=== PATIENT | female | born 1965 | race Caucasian/White ===

== ENCOUNTER → 2020-10-24 10:09 | Outpatient (CLI) | payer BC, SELFPAY ==
--- NOTE | ~2020-10-24 | MM_ITS ---
EXAMINATION: MM screening [facility] BI w alec HISTORY: Screening mammogram TECHNIQUE: Craniocaudal and mediolateral oblique 3-D tomosynthesis images were obtained and synthetic 2-D images were generated. CAD analysis was submitted and interpreted. COMPARISON: 08/20/2019, 11/26/2018, 07/29/2018, 03/20/2017 BREAST PARENCHYMAL COMPOSITION: There are scattered areas of fibroglandular density. FINDINGS: There is no evidence of suspicious mass, calcification, or architectural distortion to sugg est malignancy in either breast. There has been no suspicious interval change. IMPRESSION: 1. No mammographic evidence of malignancy. 2. Recommend routine screening mammography in one year. BI-RADS Category 1: Negative Reviewed, dictated and finalized at location A. E CLEANER
== END ==
PROVIDERS: Visit Provider Obstetrics & Gynecology
DX: Z12.31 Encounter for screening mammogram for malignant neoplasm of breast (principal)
CPT/HCPCS: 77063; 77067

== ENCOUNTER → 2021-12-17 11:00 | Outpatient (CLI) | payer BC, SELFPAY ==
--- NOTE | ~2021-12-17 | XR_ITS ---
EXAMINATION: XR abdomen/kub 1V DATE: 12/17/2021 11:35 INDICATION: Low back pain, unspecified. Right flank pain. Hematuria. TECHNIQUE: A supine view of the abdomen was obtained. COMPARISON: None. FINDINGS: There are no dilated loops of bowel. There is a large volume of stool in the colon. There i s no visible urolithiasis. Surgical clips in the right upper quadrant are likely from cholecystectomy . IMPRESSION: 1. No visible urolithiasis. Reviewed, dictated and finalized at location A. E AND DESK FINISHER IMPRESSION: 1. No visible urolithiasis.
== END ==
PROVIDERS: PCP Family Medicine; Visit Provider Nurse Practitioner Family
DX: M54.50 Low back pain, unspecified (principal); R31.9 Hematuria, unspecified; R80.9 Proteinuria, unspecified
CPT/HCPCS: 74018

== ENCOUNTER → 2021-12-30 13:38 | Outpatient (CLI) | payer BC, SELFPAY ==
--- NOTE | ~2021-12-30 | CT_ITS ---
EXAMINATION: CT abdomen pelvis wo con EXAM DATE: 12/30/2021 14:08 INDICATION: R31.9 - Hematuria, unspecified. Right flank pain. TECHNIQUE: Spiral CT of the abdomen and pelvis was performed without contrast. Axial, coronal and sag ittal images were reviewed. The dose-length product (DLP) for this examination was 261.84 mGy-cm. T he exposure was tailored according to patient size (auto mA exposure control), and iterative reconstr uction (ASIR) was used as additional dose reduction technique. There is no prior study for compariso n. FINDINGS: There is no nephrolithiasis or hydronephrosis. The uterus is unremarkable. The bladder is unremarkable. The liver, spleen, adrenal glands and pancreas are unremarkable. There are cholecy stectomy clips. There is no retroperitoneal or pelvic lymphadenopathy. Small umbilical fat-contain ing hernia. There are no findings to suggest appendicitis. The stomach and small bowel are unremarkable. There is moderate amount of colonic stool. No free intraperitoneal gas. The heart is normal in size. T here are no pericardial or pleural effusions. Patchy peripheral bibasilar regions of subsolid airspa ce disease, appearance is suspicious for COVID pneumonia. There are no osteoblastic or osteolytic le sions identified. IMPRESSION: 1. Basilar airspace disease consistent with COVID pneumonia. 2. No nephrolithiasis, hydronephrosis or acute intra-abdominal findings. 3. Moderate colonic stool. I called pneumonia result to HELEN Urias Reviewed, dictated and finalized at location A. N UP PERSON
== END ==
PROVIDERS: PCP Family Medicine; Visit Provider Nurse Practitioner Family
DX: R31.9 Hematuria, unspecified (principal); R80.9 Proteinuria, unspecified; R91.8 Other nonspecific abnormal finding of lung field; K42.9 Umbilical hernia without obstruction or gangrene
CPT/HCPCS: 74176

== ENCOUNTER → 2022-01-24 08:31 | Outpatient (CLI) | payer BC, SELFPAY ==
--- NOTE | ~2022-01-24 | XR_ITS ---
EXAMINATION: XR chest 2V DATE: 01/24/2022 10:08 INDICATION: COVID 19 TECHNIQUE: frontal and lateral views of the chest were obtained. COMPARISON: None FINDINGS: The lungs are clear with no focal airspace opacities, pulmonary edema, pleural effusion or pneumothor ax. The cardiomediastinal silhouette is normal. Visualized bones and soft tissues are unremarkable. IMPRESSION: 1. No acute cardiopulmonary disease. Reviewed, dictated and finalized at location A.
== END ==
PROVIDERS: PCP Family Medicine; Visit Provider Nurse Practitioner Family
DX: U07.1 COVID-19 (principal)
CPT/HCPCS: 71046

== ENCOUNTER → 2022-10-20 15:07 | Outpatient (CLI) | payer BC, SELFPAY ==
--- NOTE | ~2022-10-20 | MM_ITS ---
EXAMINATION: MM screening [facility] BI w [facility]c HISTORY: Screening TECHNIQUE: Craniocaudal and mediolateral oblique 3-D tomosynthesis images were obtained and synthetic 2-D images were generated. CAD analysis was submitted and interpreted. COMPARISON: Comparison to multiple prior studies sequentially, with oldest reviewed study dated . BREAST PARENCHYMAL COMPOSITION: There are scattered areas of fibroglandular density. FINDINGS: There is no evidence of suspicious mass, calcification, or architectural distortion to sugg est malignancy in either breast. There has been no suspicious interval change. IMPRESSION: 1. No mammographic evidence of malignancy. 2. Recommend routine screening mammography in one year. BI-RADS Category 1: Negative Reviewed, dictated and finalized at location B. EL ENGINE PIPE FITTER
== END ==
PROVIDERS: PCP Obstetrics & Gynecology; Visit Provider Obstetrics & Gynecology
DX: Z12.31 Encounter for screening mammogram for malignant neoplasm of breast (principal)
CPT/HCPCS: 77063; 77067

== ENCOUNTER 2023-02-26 11:08 | Emergency (ER) | payer BC, SELFPAY ==
[2023-02-26] VITALS (7 sets, daily range): BP systolic 114–127; BP diastolic 62–75; PULSE 50–72; RESP 10–16; TEMP 36.2–36.4; O2SAT 99–100
--- NOTE | ~2023-02-26 | XR_ITS ---
Clinical Indication: Palpitation PA and lateral views of the chest: Comparison: 01/24/2022 Findings: The lungs are clear, without evidence of focal consolidation or pleural effusion. Cardiome diastinal silhouette is within normal limits. Bones and soft tissues are unremarkable. Impression: Normal chest. Reviewed, dictated and finalized at [facility]. Impression: Normal chest.
--- NOTE | 2023-02-26 11:26 | ECG_ITS ---
Measurements Intervals [place] Rate: 64 P: 74 ID: [id number] QRS: 70 QRSD: 84 T: 66 QT: 426 QTc: 441 Interpretive Statements SINUS RHYTHM NO PREVIOUS ECG AVAILABLE FOR COMPARISON Electronically Signed On 02-26-2023 18:32:00 CDT by Sachin Blackwell M.D.
[2023-02-26 11:46] LABS: Basophils Absolute Auto 0.1 K/mm3 (0.0-0.1); Basophils Percent Auto 0.8 % (0.2-1.2); Eosinophils Absolute Auto 0.1 K/mm3 (0-0.3); Eosinophils Percent Auto 1.4 % (0-4.4); Hematocrit 40.3 % (37.0-47.0); Hemoglobin 13.2 g/dL (12.0-15.0); Immature Granulocyte Absolute 0.01 K/mm3 (0.00-0.031); Immature Granulocyte Percent A 0.1 % (0-0.5); Lymphocytes Absolute Auto 3.25 K/mm3 (0.9-3.2); Lymphocytes Percent Auto 45.3 % (18.3-44.2); Mean Corpuscular HGB Conc 32.8 g/dl (32-36); Mean Corpuscular Hemoglobin 32.3 pg (26-34); Mean Corpuscular Volume 98.5 fl (80-100); Mean Platelet Volume 9.8 fl (7.4-10.4); Monocytes Absolute Auto 0.6 K/mm3 (0.1-0.6); Monocytes Percent Auto 8.8 % (2.6-8.5); Neutrophils Absolute Auto 3.1 K/mm3 (1.3-6.7); Neutrophils Percent Auto 43.6 % (45.5-73.1); Platelet Count Result 322 k/mm3 (150-375); Red Blood Count 4.09 M/mm3 (4.2-5.4); Red Cell Distribution Width 12.3 % (11.5-14.5); White Blood Count 7.2 K/mm3 (4.5-10.0)
[2023-02-26 11:55] LABS: Prothrombin Time 13.1 Seconds (11.1-14.7)
[2023-02-26 11:56] LABS: Partial Thromboplastin Time 29.1 SECONDS (22.3-36.8)
[2023-02-26 11:58] LABS: Alanine Aminotransferase 28 U/L (6-35); Albumin Level 4.3 g/dL (3.5-5.1); Alkaline Phosphatase 75 U/L (38-126); Anion Gap 3 mmol/L (8-16); Aspartate Amino Transferase 33 U/L (14-36); Bilirubin,Total 0.5 mg/dL (0.2-1.3); Blood Urea Nitrogen 11 mg/dL (7-17); Carbon Dioxide 31 mmol/L (22-30); Chloride 105 mmol/L (98-107); Estimated CRCL calculation 66 ml/min; Estimated Glomerular Filt Rate > 60; Glucose 76 mg/dL (65-110); Lipase 124 U/L (23-300); Potassium 3.8 mmol/L (3.4-5.0); Sodium 139 mmol/L (137-145)
[2023-02-26 12:10] LABS: Troponin I < 0.012 ng/mL (0.000-0.034)
[2023-02-26 14:04] LABS: Magnesium 2.2 mg/dL (1.6-2.3)
[2023-02-26 15:07] LABS: Troponin I < 0.012 ng/mL (0.000-0.034)
--- NOTE | 2023-02-26 15:52 | ED.ARRPALP ---
HPI - Arrhythmia/Palpitations General Chief Complaint: Arrhythmia/Palpitations Stated Complaint: palpitations Time Seen by Provider: 02/26/23 15:00 History of Present Illness HPI narrative: Patient is a 57-year-old female who presents ER with palpitations. Ongoing over the last couple months. Has not been seen by her PCP. Happens during the day when she is exerting herself. No lightheadedness or dizziness. No nausea or vomiting. Has occasional shortness of breath but is not fully associated with palpitations. She has not taken her pulse to see how fast her heart rate is going. She feels like it is just beating hard. No chest pain or chest pressure. No runny nose or sore throat or productive cough. No pain with deep breath. Patient reports intermittent heartburn over the last month as well but attributes it to a poor diet, symptoms are worse after eating, they are not associate with exertion. Related Data Allergies Allergy/AdvReac Type Severity Reaction Status Date / Time alprazolam [From Xanax] Allergy Intermediate Unknown Verified 02/26/23 14:53 Benzodiazepines Allergy Unknown Unknown Verified 02/26/23 14:53 Review of Systems Review of Systems: All systems reviewed & are unremarkable except as noted in HPI and below Constitutional: Constitutional: Denies chills, Denies fatigue and Denies fever(s) ENT: Denies nasal congestion and Denies sore throat Cardiovascular: Cardiovascular: Denies chest pain and Denies radiating jaw, neck or arm pain Respiratory: Respiratory: Denies cough and Reports dyspnea (Intermittent) Gastrointestinal: Gastrointestinal: Denies abdominal pain, Reports heartburn, Denies nausea and Denies vomiting Genitourinary: Genitourinary: Denies nocturia and Denies dysuria [facility] Past Medical History Medical History Abrasion of knee Anxiety Constipation Forearm abrasion Restless leg syndrome Screening, lipid Surgical History Surgical History History of x3 History of cholecystectomy History of colonoscopy with polypectomy History of exploratory laparotomy (10/12/03) exploratory lap/RSO/scar revision/adhesiolysis History of laparoscopy (~2001) History of right salpingo-oophorectomy (10/12/03) History of tubal ligation Family History Family History Father Hypertension Grandparent Carcinoma of colon Cerebrovascular accident Family history of cardiovascular disease Other Diabetes mellitus Social History Social History Smoking status: Never smoker Alcohol intake: never Substance use: never Substance use type: does not use Living arrangements: with family Occupation/Education: occupation Gender identity (if verbalized by the patient): Female Exam Narrative: GENERAL: Well-appearing, well-nourished, and in no acute distress. HEAD: Normocephalic, atraumatic. EYES: PERRL and EOMI. ENT: Mucous membranes moist. CHEST: Clear to auscultation. No respiratory distress. HEART: Regular rate and rhythm. Normal peripheral pulses. EXTREMITIES: Normal range of motion. No edema. SKIN: Warm, dry, no rash. NEURO: Alert and oriented x3. PSYCH: Anxious mood but normal thought process. Course Course Emergency Course: Patient resting comfortably. Educated on lab results. Troponin negative x2. No arrhythmia on monitor and EKG. Suspect component of anxiety but would recommend outpatient Holter monitor should symptoms persist. Patient verbalized understand this and is felt appropriate for discharge. Vital Signs Vital signs: Vital Signs Temperature 97.6 F 02/26/23 11:22 Pulse Rate 64 02/26/23 11:22 Respiratory Rate 16 02/26/23 11:22 Blood Pressure 126/73 02/26/23 11:22 Pulse Oximetry 99 02/26/23 11:22 Oxygen Delivery Room Air
== END 2023-02-26 16:18 | disposition home or self-care (01) ==
PROVIDERS: Physician Assistant; Emergency Provider Emergency Medicine; PCP Family Medicine
DX: R00.2 Palpitations (principal); F41.9 Anxiety disorder, unspecified; G25.81 Restless legs syndrome; Z90.721 Acquired absence of ovaries, unilateral; Z90.79 Acquired absence of other genital organ(s)
CPT/HCPCS: 36415; 71046; 80053; 83690; 83735; 84484; 85025; 85610; 85730; 93005; 99284

== ENCOUNTER → 2023-07-21 15:08 | Outpatient (CLI) | payer BC, SELFPAY ==
--- NOTE | ~2023-07-21 | XR_ITS ---
EXAM: XR lumbar spine 2-3V DATE: 07/21/2023 15:53 HISTORY: NECK PAIN, LOW BACK PAIN . COMPARISON: None available. FINDINGS: Cholecystectomy clips. Mild lumbar scoliosis. Decreased mineralization. 5 nonrib-bearing flex mbar-type vertebral bodies. Pedicles intact. Normal vertebral body alignment. Vertebral body heights preserved. Disc spaces maintained. Mild lower lumbar facet sclerosis and hypertrophy. No fracture or dislocation. IMPRESSION: Osteopenia. Mild lower lumbar facet arthropathy. Reviewed, dictated and finalized at location K.
--- NOTE | ~2023-07-21 | XR_ITS ---
Cervical Spine: AP, lateral, open-mouth views Clinical History: Pain Findings: There is mild reversal normal cervical lordosis. The vertebral bodies and posterior elemen ts appear intact. There is mild degenerative disc narrowing at C5-C6. Pre-vertebral soft tissues are unremarkable. Impression: Mild reversal of the normal cervical lordosis, with mild degenerative disc narrowing at C5-C6. Reviewed, dictated and finalized at [facility]. Impression: Mild reversal of the normal cervical lordosis, with mild degenerative disc narr owing at C5-C6.
== END ==
DX: M53.0 Cervicocranial syndrome (principal); M50.322 Other cervical disc degeneration at C5-C6 level; M47.896 Other spondylosis, lumbar region; M85.80 Other specified disorders of bone density and structure, unspecified site
CPT/HCPCS: 72050; 72100

== ENCOUNTER 2023-10-21 00:26 | Day surgery (SDC) | payer BC, SELFPAY ==
[2023-10-06 14:47] VITALS: BMI 21.9
--- NOTE | 2023-10-19 11:21 | SUR.PREOP ---
Patient called regarding upcoming procedure. Reviewed preop instructions, appointment times, and procedure prep.
[2023-10-21 06:45] VITALS: BP 105/68; PULSE 65; RESP 18; TEMP 36.4; O2SAT 100; BMI 20.2
[2023-10-21] MEDS: LACTATED RINGERS 1,000 ML 150 ML IV CONT (07:06)
--- NOTE | 2023-10-21 07:51 | PM.HPGS ---
History of Present Illness History of Present Illness Consent: Risks, benefits, and alternatives have been discussed and questions answered. Patient agrees to proceed with procedure. Chief complaint: hx of colonic polyps Narrative: Dee Jorge is a 57 year old female with colon polyps in 2019 Review of Systems Constitutional: Constitutional: Denies headache(s) and Denies weakness Eyes: Eyes: Denies blurry vision ENT: Reports Normal hearing present, Denies headache(s) and Denies neck pain Cardiovascular: Cardiovascular: Denies chest pain and Denies dyspnea Respiratory: Respiratory: Denies dyspnea Gastrointestinal: Gastrointestinal: Reports no additional gastrointestinal complaints Genitourinary: Genitourinary: Denies dysuria Musculoskeletal: Musculoskeletal: Denies neck pain Integumentary/Breasts: Skin/Breast: Denies dry skin Neurologic: Reports Normal hearing present, Denies headache(s) and Denies weakness Psychiatric: Psychiatric: Denies anxiety Endocrine: Endocrine: Denies change in body appearance Hematologic/Lymphatic: Hematologic/Lymphatic: Denies easy bleeding Allergic/Immunologic: Allergic/Immunologic: Denies urticaria PMFSH Past Medical History Medical History (Updated 09/29/23 @ 09:17 by HELEN Urias) Abrasion of knee Anxiety Body mass index (BMI) less than 20 Constipation Encounter for gynecological examination Forearm abrasion Personal history of colonic polyps Restless leg syndrome Screening, lipid Surgical History Surgical History History of x3 History of cholecystectomy History of colonoscopy with polypectomy History of exploratory laparotomy (10/12/03) exploratory lap/RSO/scar revision/adhesiolysis History of laparoscopy (~2001) History of right salpingo-oophorectomy (10/12/03) History of tubal ligation Family History Family History Father Hypertension Grandparent Carcinoma of colon Cerebrovascular accident Family history of cardiovascular disease Mother No problems noted. Sibling Hypertension Other Diabetes mellitus Social History Social History Smoking status: Never smoker Second hand tobacco smoke exposure: Yes Alcohol intake: never Substance use: never Substance use type: does not use Lack of Transportation: No Lack of Food: Never True Current Housing: I Have Housing Concerned About Future Housing: No Difficulty Paying Gas/Electric Bills: No Difficulty Paying for Meds: No Currently Unemployed: No Education: Trade/Vocational Certificate Difficulty w/ Childcare or Family Care: No Living arrangements: with family Occupation/Education: occupation Additional occupation/education comments: [employer] Gender identity (if verbalized by the patient): Female Spiritual care concerns: No Meds Home Medications and Allergies Home Medications Medication Instructions Recorded Confirmed Type lorazepam 1 mg tablet See Rx Instructions PO .COMPLEX 09/04/23 10/21/23 Rx PRN anxiety #150 tabs multivitamin 1 tablet PO DAILY 09/04/23 10/21/23 History ondansetron 4 mg disintegrating 4 mg PO Q4-6H PRN Nausea #6 tabs 10/16/23 Rx tablet Allergies Allergy/AdvReac Type Severity Reaction Status Date / Time alprazolam [From Xanax] AdvReac Intermediate Confusion Verified 10/21/23 06:53 Benzodiazepines AdvReac Intermediate Confusion Verified 10/21/23 06:53 Vital Signs Vital Signs - 24 hr 10/21/23 06:45 Temperature 97.6 F Pulse Rate 65 Respiratory Rate 18 Blood Pressure 105/68 Pulse Oximetry 100 Oxygen Delivery Room Air Exam Const: General: comfortable and no acute distress HENMT: Face/Nose/Sinus: Normal nares present Eyes: General: appearance normal, both eyes and all related structures Neck: Neck: n
--- NOTE | 2023-10-21 07:52 | WPDANESEPPF ---
Anes - Initial Pre Proc Eval Procedure: Operation Date: 10/21/23 08:00 Proposed Procedures p Colonoscopy - Bobby Todd MD Date/Time: 10/21/23 07:52 Surgeon: Bobby Todd MD Pre Op Diagnosis: hx of colonic polyps Patient Data Age: 57 Gender: F Height: 1.55 m Weight: 48.5 kg Last Vital Signs Temp 97.6 F 10/21/23 06:45 Pulse 65 10/21/23 06:45 Resp 18 10/21/23 06:45 BP 105/68 10/21/23 06:45 Pulse Ox 100 10/21/23 06:45 O2 Del Method Room Air 10/21/23 06:45 Allergies Allergy/AdvReac Type Severity Reaction Status Date / Time alprazolam [From Xanax] AdvReac Intermediate Confusion Verified 10/21/23 06:53 Benzodiazepines AdvReac Intermediate Confusion Verified 10/21/23 06:53 Home Medications Medication Instructions Recorded Confirmed Type lorazepam 1 mg tablet See Rx Instructions PO .COMPLEX 09/04/23 10/21/23 Rx PRN anxiety #150 tabs multivitamin 1 tablet PO DAILY 09/04/23 10/21/23 History ondansetron 4 mg disintegrating 4 mg PO Q4-6H PRN Nausea #6 tabs 10/16/23 Rx tablet Patient hx anesthesia problems: none Family hx anesthesia problems: none Results Review: All pre-operative results and documents have been reviewed as part of the pre-operative evaluation. [facility] Past Medical History Medical History (Updated 09/29/23 @ 09:17 by HELEN Urias) Abrasion of knee Anxiety Body mass index (BMI) less than 20 Constipation Encounter for gynecological examination Forearm abrasion Personal history of colonic polyps Restless leg syndrome Screening, lipid Surgical History Surgical History History of x3 History of cholecystectomy History of colonoscopy with polypectomy History of exploratory laparotomy (10/12/03) exploratory lap/RSO/scar revision/adhesiolysis History of laparoscopy (~2001) History of right salpingo-oophorectomy (10/12/03) History of tubal ligation Family History Family History Father Hypertension Grandparent Carcinoma of colon Cerebrovascular accident Family history of cardiovascular disease Mother No problems noted. Sibling Hypertension Other Diabetes mellitus Social History Social History Smoking status: Never smoker Second hand tobacco smoke exposure: Yes Alcohol intake: never Substance use: never Substance use type: does not use Lack of Transportation: No Lack of Food: Never True Current Housing: I Have Housing Concerned About Future Housing: No Difficulty Paying Gas/Electric Bills: No Difficulty Paying for Meds: No Currently Unemployed: No Education: Trade/Vocational Certificate Difficulty w/ Childcare or Family Care: No Living arrangements: with family Occupation/Education: occupation Additional occupation/education comments: skilled nursing Gender identity (if verbalized by the patient): Female Spiritual care concerns: No Anes - Eval Final PreProcedure Day of Procedure 10/21/23 07:52 Patient weight: normal Heart: regular rate and rhythm Lungs: clear to auscultation Airway: Mallampati scale class II Neurological: alert and oriented Last oral intake: >/= 8 hours ASA classification: II Emergent: no Anesthetic plan: proceed Anesthesia type and monitoring: general GIVS and standard monitoring Results Review: All pre-operative results and documents have been reviewed as part of the pre-operative evaluation. Informed Consent: The patient's anesthetic plan and its attendant risks and benefits were discussed with the patient/family/POA. Questions were solicited and answers provided to the satisfaction of the patient/family/POA.
[2023-10-21 08:13] VITALS: BP 94/56; PULSE 69; RESP 16; O2SAT 97
[2023-10-21 08:23] VITALS: BP 101/58; PULSE 61; RESP 21; O2SAT 100
[2023-10-21 08:33] VITALS: BP 104/78; PULSE 60; RESP 18; O2SAT 100
== END 2023-10-21 08:41 | disposition home or self-care (01) ==
PROVIDERS: PCP Family Medicine; Visit Provider Internal Medicine Gastroenterology
PROC: 0DJD8ZZ Inspection of Lower Intestinal Tract, Via Natural or Artificial Opening Endoscopic (ICD-10-PCS; CPT 45378; principal; 2023-10-21 08:00)
DX: Z12.11 Encounter for screening for malignant neoplasm of colon (principal); D12.2 Benign neoplasm of ascending colon
CPT/HCPCS: 45385; 88305; J2704; J7120

== ENCOUNTER 2024-04-08 12:30 | Outpatient (CLI) | payer BC, SELFPAY ==
--- NOTE | ~2024-04-08 | MR_ITS ---
EXAMINATION: MR brain/brain stem wo con DATE: 04/08/2024 13:08 INDICATION: Other amnesia. TECHNIQUE: Magnetic resonance imaging (MRI) of the brain and brainstem was performed without intraven ous contrast. COMPARISON: Brain MRI 01/26/2015 FINDINGS: There is no intracranial hemorrhage, acute infarction, or abnormal intracranial mass lesion . The ventricles are normal in size. The orbits are normal. There is mild mucosal thickening in the e thmoid sinuses. The mastoid air cells are normal. IMPRESSION: 1. Normal brain. Reviewed, dictated and finalized at location A. IMPRESSION: 1. Normal brain.
== END 2024-04-08 12:31 | disposition home or self-care (01) ==
LOC: ANHIMG 12:34
PROVIDERS: PCP Family Medicine; Visit Provider Nurse Practitioner Family
DX: R41.3 Other amnesia (principal)
CPT/HCPCS: 70551

== ENCOUNTER 2024-06-14 13:48 | Outpatient (CLI) | payer BC, SELFPAY ==
--- NOTE | ~2024-06-14 | US_ITS ---
EXAMINATION: US venous doppler [facility] DATE: 06/14/2024 14:25 INDICATION: Right lower limb pain and swelling. TECHNIQUE: Grayscale ultrasound images without and with compression and Doppler ultrasound images of the bilateral lower extremity veins were obtained. COMPARISON: None. FINDINGS: The visualized portions of right common femoral vein, profunda (deep) femoral vein, femoral vein, pop liteal vein, peroneal veins, posterior tibial veins, and greater saphenous vein outflow are patent. The visualized portions of left common femoral vein, profunda femoral vein, femoral vein, popliteal v ein, peroneal veins, posterior tibial veins, and greater saphenous vein outflow are patent. IMPRESSION: 1. No deep venous thrombosis. Reviewed, dictated and finalized at location A.
== END 2024-06-14 13:49 | disposition home or self-care (01) ==
LOC: ANHIMG 13:48
PROVIDERS: PCP Family Medicine; Visit Provider Nurse Practitioner Family
DX: M79.89 Other specified soft tissue disorders (principal)
CPT/HCPCS: 93970

== ENCOUNTER 2024-12-05 13:10 | Outpatient (CLI) | payer BC, SELFPAY ==
--- NOTE | ~2024-12-05 | US_ITS ---
EXAMINATION: US soft tissue LE RT DATE: 12/05/2024 13:27 INDICATION: Palpable area posterior to the right knee TECHNIQUE: Multiple grayscale and Doppler ultrasound images of the region of concern at the right pop liteal fossa were obtained. COMPARISON: 06/14/2024 FINDINGS/IMPRESSION: Palpable abnormality of concern corresponds to a 5.0 x 2.9 x 1.6 cm nearly anechoic Montgomery's cyst at t he right popliteal fossa. Reviewed, dictated and finalized at location B. TION OPERATIONS SPECIALIST
== END 2024-12-05 13:11 | disposition home or self-care (01) ==
LOC: MICIMG 13:10
PROVIDERS: PCP Nurse Practitioner Family; Visit Provider Nurse Practitioner Family
DX: M71.21 Synovial cyst of popliteal space [Baker], right knee (principal)
CPT/HCPCS: 76882

== ENCOUNTER 2024-12-26 13:54 | Outpatient (CLI) | payer BC, SELFPAY ==
--- NOTE | ~2024-12-26 | MM_ITS ---
EXAMINATION: MM screening [place] BI w alec HISTORY: Screening TECHNIQUE: Craniocaudal and mediolateral oblique 3-D tomosynthesis images were obtained and synthetic 2-D images were generated. CAD analysis was submitted and interpreted. COMPARISON: Comparison to multiple prior studies sequentially, with oldest reviewed study dated 03/20. BREAST PARENCHYMAL COMPOSITION: Not dense: There are scattered areas of fibroglandular density. FINDINGS: There is no evidence of suspicious mass, calcification, or architectural distortion to sugg est malignancy in either breast. There has been no suspicious interval change. IMPRESSION: 1. No mammographic evidence of malignancy. 2. Recommend routine screening mammography in one year. BI-RADS Category 1: Negative Reviewed, dictated and finalized at location B. MENTAL IRONWORKER
== END 2024-12-26 13:55 | disposition home or self-care (01) ==
LOC: MICIMG 13:54
PROVIDERS: PCP Nurse Practitioner Family; Visit Provider Student in an Organized Health Care Education/Training Program
DX: Z12.31 Encounter for screening mammogram for malignant neoplasm of breast (principal)
CPT/HCPCS: 77063; 77067

== ENCOUNTER 2025-03-20 17:07 | Outpatient (CLI) | payer BC, SELFPAY ==
--- NOTE | ~2025-03-20 | US_ITS ---
EXAMINATION: US venous doppler [facility] DATE: 03/20/2025 18:13 INDICATION: Bilateral leg pain and swelling. TECHNIQUE: Grayscale images without and with compression and Doppler images of the bilateral lower ex tremity veins were obtained. COMPARISON: 06/14/2024 FINDINGS: The right common femoral vein, profunda (deep) femoral vein, femoral vein, popliteal vein, peroneal v ein, posterior tibial veins, gastrocnemius vein, and greater saphenous vein are patent. Right posteri or knee fluid collection, likely Montgomery's cyst. The left common femoral vein, profunda (deep) femoral vein, femoral vein, popliteal vein, peroneal v ein, posterior tibial veins, gastrocnemius vein, and greater saphenous vein are patent. IMPRESSION: Patent bilateral lower extremity veins. No evidence of deep venous thrombosis. Reviewed, dictated and finalized at location K.
--- OUTSIDE RECORDS SUMMARY | 2025-03-20 17:30 | XMS_ITS | Clinical Summary ---
Author Organization [facility] Address [address], [address] [address] Phone Care Team Providers Care Editor & Co Founder Name Role Phone Lawrence Hayes MD Primary Care Provider Allergies Active Allergy Reactions Criticality Noted Date Comments Iodinated Contrast Media Unknown High 07/23/2018 Unsure what happened Medications LORazepam (ATIVAN) 1 MG TabletIndication s:and takes 1mg at HS Take 2 mg by mouth 2 times daily. 0 07/08/2018 Active Multiple Vitamin (MULTI-VITAMIN PO) Take 1 Tab by mouth daily. Active Multiple Vitamins-Mineral s (HAIR SKIN AND NAILS FORMULA PO) Take 1 Tab by mouth daily. 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 Active Meloxicam 15 MG Tablet Take 15 mg by mouth Daily as needed. Active Family History Medical History Relation Name Comments Hypertension Father Colon Cancer Maternal Grandmother colon Cancer Maternal Uncle pancreatic No Known Problems Mother Relation Name Status Comments Father Alive Maternal Grandmother Maternal Uncle Mother Alive Social History Tobacco Use Types Packs/Day Years Used Date Smoking Tobacco: Never Smokeless Tobacco: Never Alcohol Use Standard Drinks/Week Comments No 0 (1 standard drink = 0.6 oz pur e alcohol) Comments Unknown Sex and Gender Information Value Date Recorded Sex Assigned at Not on file Legal Sex Female 3:31 PM CDT Gender Identity Not on file Sexual Orientation Not on file Last Filed Vital Signs Vital Sign Reading Time Taken Comments Blood Pressure 88/52 08/31/2019 7:01 AM CDT anesthesia aware pt alert Pulse 62 08/31/2019 7:01 AM CDT Temperature 36 C (96.8 F) 08/31/2019 7:01 AM CDT Respiratory Rate 16 08/31/2019 7:01 AM CDT Oxygen Saturation 96% 08/31/2019 7:0 1 AM CDT Inhaled Oxygen Concentration - - Weight 52.2 kg (115 lb) 07/27/2019 11:0 0 AM CDT Height 154.9 cm (5' 1 ) 07/27/2019 11:0 0 AM CDT Body Mass Index 21.73 07/27/2019 11:00 AM CDT Plan of Treatment Health Maintenance Due Date Last Done Comments Hepatitis C Virus (HCV) Screening 1965 Mammogram 1965 TdaP Immunization 1965 Hepatitis B Immunization (1 of 3 - 19+ 3-dose series) 1984 Pap Smear 1986 Cervical Cancer Screening (CCS) 1995 HPV/Cotest 1995 Cologuard 2015 Immunochemical Fecal Occult Blood 2015 Pneumococcal Immunization (5 0+ years) (1 of 1 - PCV) 2015 Zoster Immunization (1 of 2) 2015 Colonoscopy 08/31/2022 08/31/2019, 08/13/2018 Colorectal Cancer Screening 08/31/2022 Influenza Immunization (#1) 2024 SARS-COV-2 Immunization ( - season) 2024 Respiratory Syncytial Virus (RSV) Immunization (Adult) (1 - 1-dose 75+ series) 2040 08/31/2019, 08/13/2018 Meningococcal Immunization (ACWY) Aged Out No longer eligible b ased on patient's age to complete this topic Rotavirus Immunization Aged Out No lo nger eligible based on patient's age to complete this topic Insurance [facility] Care Teams Editor & Co Founder Relationship Specialty Start Date End Date Lawrence Hayes MD [address] [place], [place] [id number] PCP - General Family Medicine 07/20/18
--- OUTSIDE RECORDS SUMMARY | 2025-03-20 17:30 | XMS_ITS | Clinical Summary ---
Author Organization [facility] Address [address] [place] [address] Care Team Providers Care Postpartum Rn Name Role Phone Stephania Encarnacion NP Primary Care Provider [phone] Allergies No known active allergies Medications No known medications Social History Tobacco Use Types Packs/Day Years Used Date Smoking Tobacco: Never Smokeless Tobacco: Never Alcohol Use Standard Drinks/Week Comments Never 0 (1 standard drink = 0.6 oz pur e alcohol) Comments No Sex and Gender Information Value Date Recorded Sex Assigned at Not on file Legal Sex Female 5:35 PM CDT Gender Identity Not on file Sexual Orientation Not on file Last Filed Vital Signs Vital Sign Reading Time Taken Comments Blood Pressure 114/62 03/31/2024 11:49 AM CDT Pulse 77 03/31/2024 11:49 AM CDT Temperature 36.6 C (97.8 F) 03/31/2024 11:49 AM CDT Respiratory Rate 18 03/31/2024 11:49 AM CDT Oxygen Saturation 98% 03/31/2024 11:49 AM CDT Inhaled Oxygen Concentration - - Weight 60 kg (132 lb 4.4 oz) 03/31/2024 11:49 AM CDT Height 154.9 cm (5' 1 ) 03/31/2024 11:49 AM CDT Body Mass Index 24.99 03/31/2024 11:49 AM CDT Plan of Treatment Health Maintenance Due Date Last Done Comments Cervical Cancer Screening Pa p Smear (Age 30 to 64) Every 3 Years 1965 Colorectal Cancer Screening Colonoscopy (10 Years) 1965 Annual Physical 1968 Hepatitis C 1983 Cervical Cancer Screening Pa p with HPV Testing (Age 30 to 64) Every 5 Years 1995 Cervical Cancer Screening with HPV 1995 Mammogram Screening 2005 Pneumococcal Vaccine: 50+ Ye ars (1 of 1 - PCV) 2015 Zoster Vaccines (1 of 2) 2015 COVID-19 Vaccine (1 - 2023-2 5 season) 2024 DTaP, Tdap and Td Vaccines ( 2 - Td or Tdap) 07/18/2026 07/18/2016 Meningococcal B Vaccine Aged Out No l onger eligible based on patient's age to complete this topic Meningococcal Vaccine Aged Out No gareth berhane eligible based on patient's age to complete this topic RSV Immunizations Under 20 Months Aged Out No longer eligible based on patient's age to complete this topic Insurance [employer] Care Teams Postpartum Rn Relationship Specialty Start Date End Date Stephania Encarnacion NP [address] [address] PCP - General NURSE PRACTITIONER 03/31/24
--- OUTSIDE RECORDS SUMMARY | 2025-03-20 17:30 | XMS_ITS | Clinical Summary ---
Author Organization [facility] Address [address] [place] [address] Care Team Providers Care Creative Services Producer Name Role Phone Unavailable Primary Care Provider Unavailabl e Source Comments [facility],non-owned Affiliates and Associated Physician Practices is amultiple site organization consisting of ambulatory clinics and hospital sitesin [place], [place], [place] and [place]. This disclosure is being madepursuant to the Care Everywhere program and may not contain all information available regarding this patient. Last updated 18.[facility] Allergies No known active allergies Medications * Be aware that medications may not be up to date on this document. Alwaysverify current medications with the patient. No known medications Active Problems No known active problems Immunizations Immunization Administration Dates Next Due TDAP (7yrs+) 07/18/2016 Social History Tobacco Use Types Packs/Day Years Used Date Smoking Tobacco: Never Assessed Comments Unknown Sex and Gender Information Value Date Recorded Sex Assigned at Not on file Legal Sex Female 9:04 AM CDT Gender Identity Not on file Sexual Orientation Not on file Plan of Treatment Health Maintenance Due Date Last Done Comments COLOGUARD (AGES 45-75) - COL ON CA SCREENING 1965 COLON MONITORING 1965 COLONOSCOPY - COLON CA SCREENING 1965 CT COLONOGRAPHY - COLON CA SCREENING 1965 Colorectal Cancer Screening 1965 FIT - COLON CA SCREENING 1965 FLEX SIG - COLON CA SCREENING 1965 LIPID TESTING 1965 MAMMOGRAM 1965 PAP SMEAR 1965 HIV SCREENING 1980 HEPATITIS C SCREENING 12/23/1983 HEPATITIS B VACCINE (1 of 3 - 19+ 3-dose series) 1984 PNEUMOCOCCAL VACCINE 50+ (1 of 1 - PCV) 2015 ZOSTER VACCINE (1 of 2) 2015 COVID-19 VACCINE (1 - 2023-2 5 season) 2024 DEPRESSION SCREENING 11/09/2024 INFLUENZA VACCINE (Season Ended) 2025 DTAP/TDAP/TD VACCINES (2 - T d or Tdap) 07/18/2026 07/18/2016 HIB VACCINE Aged Out No longer eligi ble based on patient's age to complete this topic HPV VACCINE Aged Out No longer eligi ble based on patient's age to complete this topic MENINGOCOCCAL (Group B) VACC INE SHARED DECISION-MAKING Aged Out No longer eligibl e based on patient's age to complete this topic MENINGOCOCCAL GROUPS A/C/Y/W VACCINE Aged Out No longer eligible b ased on patient's age to complete this topic Insurance ANTHEM ANTHEM [facility] NAMED [facility] SELF PAY NO INSURANCE Member Subscriber Plan / Payer (Ef fective for All Dates) Name:Dee Jorge Member ID:Not on file Relation to Subscriber:Not on file Name:DEE JORGE Subscriber ID:Not on file (Home) Address: [address] [place] [address] Payer ID:Not on file Group ID:Not on file Type:Self Pay Address: [place], [place]
== END 2025-03-20 17:08 | disposition home or self-care (01) ==
PROVIDERS: PCP Nurse Practitioner Family; Visit Provider Nurse Practitioner Family
DX: M79.89 Other specified soft tissue disorders (principal)
CPT/HCPCS: 93970

== ENCOUNTER 2025-06-26 14:15 | Outpatient (CLI) | payer BC, SELFPAY ==
--- NOTE | ~2025-06-26 | MR_ITS ---
MRI of the right knee Clinical history: Pain Technique: Coronal proton density and proton density-weighted images, sagittal proton-density and T2 fat-sat images, and axial proton-density fat-saturated images were acquired. Findings: Anterior and posterior cruciate ligaments are intact. Medial collateral ligament and the lateral collateral ligament complex are intact. Popliteus tendon is intact. Medial and lateral menisci are intact, without evidence of tear. Articular cartilage is well preserved throughout the knee. Bone marrow signals are unremarkable. Extensor mechanism is intact. No joint effusion. Moderate to large Montgomery's cyst present. Impression: Moderate to large Montgomery's cyst. Reviewed, dictated and finalized at location M. Impression: Moderate to large Montgomery's cyst.
--- NOTE | ~2025-06-26 | XR_ITS ---
XR knee LT min 4V 06/26/2025 14:59 INDICATION: Left knee pain PROCEDURE: 4 views left knee COMPARISON: No prior studies for comparison. FINDINGS: Fracture, dislocation or subluxation is not identified. No significant joint effusion. The soft tissues appear within normal limits. No foreign bodies are identified. IMPRESSION: 1: NO ACUTE BONE OR JOINT ABNORMALITY IDENTIFIED. Reviewed, dictated and finalized at location A.
== END 2025-06-26 14:16 | disposition home or self-care (01) ==
PROVIDERS: PCP Nurse Practitioner Family; Visit Provider Orthopaedic Surgery
DX: M71.21 Synovial cyst of popliteal space [Baker], right knee (principal); M25.562 Pain in left knee
CPT/HCPCS: 73564; 73721

== ENCOUNTER 2025-10-17 09:31 | Outpatient (CLI) | payer BC, SELFPAY ==
--- NOTE | ~2025-10-17 | XR_ITS ---
XR lumbar spine 6V w bending Indication: M54.50 - Low back pain, unspecified Comparison: None Findings: No fracture identified, no subluxation flexion and extension The disc heights are intact. Soft tissues unremarkable Impression: No acute abnormality. Reviewed, dictated and finalized at location P. CISE TEACHER Impression: No acute abnormality.
== END 2025-10-17 09:32 | disposition home or self-care (01) ==
LOC: MICIMG 09:32
PROVIDERS: PCP Nurse Practitioner Family; Visit Provider Nurse Practitioner Family
DX: M54.50 Low back pain, unspecified (principal)
CPT/HCPCS: 72114